=== PATIENT | male | born 1980 | race Caucasian/White ===

== ENCOUNTER 2017-12-07 15:57 | Emergency (ER) | payer OTHER ==
[2017-12-07 16:05] VITALS: TEMP 97.8; BMI 25.8
[2017-12-07] MEDS ORDERED: FOLIC ACID INJECTION - 1 MG, THIAMINE HCL 100 MG, MULTIVIT INJECTION ADULT 10 ML in SOD... IVPB ONE (16:37)
[2017-12-07] MEDS ORDERED: SODIUM CHLORIDE 1,000 ML IV STA (16:37)
--- NOTE | 2017-12-07 17:09 | PDOC ---
History of Present Illness - General Chief Complaint: Alcohol intoxication Stated Complaint: Alcohol intoxication Time Seen by Provider: 12/07/17 16:02 History Source: Patient Exam Limitations: Intoxication (but alert and conversive) - History of Present Illness Initial Comments: 12/07/17 17:04 37-year-old male with history of alcohol abuse presents to the ED for evaluation of etoh intoxication requesting detox. Patient states was at [facility] where he was referred by another patient's family to go to [facility] where he went to today. Pt states when he arrived he was sent here to [facility] secondary to severe intoxication and elevated JUAN DAVID. Patient denies other drug use or medical history. Patient states has been drinking for the past 10 days and not eating days at a time. Patient is requesting rehabilitation secondary to inability to stop drinking on his own and states has a meeting with the [employer] on December 10 and wants to be sober/in control at that time. Pt has no complaints including headache, abdominal pain, chest pain, nausea, fever or chills. Patient also denies head injury. Timing/Duration: unsure Severity: moderate Associated Symptoms: reports: denies symptoms Past History - Travel Traveled outside of the country in the last 30 days: No - Past Medical History Allergies/Adverse Reactions: Allergies Allergy/AdvReac Type Severity Reaction Status Date / Time No Known Allergies Allergy Verified 12/08/17 00:28 Home Medications: Ambulatory Orders Amlodipine Besylate 5 mg PO 12/09/17 COPD: No - Suicide/Smoking/Psychosocial Hx Smoking History: Never smoked Have you smoked in the past 12 months: No Information on smoking cessation initiated: No Hx Alcohol Use: No Drug/Substance Use Hx: No Substance Use Type: Alcohol Patient Lives Alone: Yes Lives with/in: spouse/SO Review of Systems - Review of Systems Able to Perform ROS?: No Constitutional: Yes: Loss of Appetite HEENTM: No: Symptoms Reported Respiratory: No: Symptoms reported Cardiac (ROS): No: Symptoms Reported ABD/GI: Yes: Poor Appetite, Poor Fluid Intake : No: Symptoms Reported Musculoskeletal: No: Symptoms Reported Integumentary: No: Symptoms Reported Neurological: No: Symptoms reported, Headache, Dizziness Psychiatric: Yes: Stressors Endocrine: No: Symptoms Reported Hematologic/Lymphatic: No: Symptoms Reported *Physical Exam - Vital Signs Last Vital Signs Temp Pulse Resp BP Pulse Ox 97.8 F 85 16 138/64 100 12/07/17 16:00 12/07/17 16:00 12/07/17 16:00 12/07/17 16:00 12/07/17 16:00 - Physical Exam General Appearance: Yes: Nourished, Appropriately Dressed, Alcohol on Breath, Intoxicated. No: Apparent Distress HEENT: positive: EOMI, TERRY, TMs Normal, Pharynx Normal (dry). negative: Pale Conjunctivae Neck: positive: Supple Respiratory/Chest: positive: Lungs Clear, Normal Breath Sounds. negative: Respiratory Distress, Accessory Muscle Use Cardiovascular: positive: Regular Rhythm, Regular Rate. negative: Murmur Gastrointestinal/Abdominal: positive: Soft. negative: Tenderness Integumentary: positive: Normal Color, Warm, Moist Neurologic: positive: Motor Strength 5/5 (ambulatory) ED Treatment Course - LABORATORY CBC & Chemistry Diagram: 12/07/17 16:45 12/07/17 16:45 Medical Decision Making - Medical Decision Making 12/07/17 17:11 Patient here for detox from alcohol. Patient sent here from [facility] secondary to the appearance of severe intoxication, inability to stand, and elevated JUAN DAVID. Patient here conversing and alert but appears dry on exam. Pt able to ambulate steady on feet here in the ED. Patient ordered for basic labs including a banana bag and a liter of normal saline. Patient will be sent to [facility] once completed. 12/07/17 18:01 Selected Entries 12/07/17 16:00 Temperature 97.8 F Pulse Rate 85 Respiratory 16 Rate Blood Pressure 138/64 O2 Sat by Pulse 100 Oximetry (%) Laboratory Tests 12/07/17 16:45 WBC 3.9 L Hgb 12.9 Hct 38.3 Plt Count 86 L 12/07/17 18:08 Laboratory Tests 12/07/17 16:45 Sodium 145 Potassium 4.1 Chloride 105 Carbon Dioxide 26 Anion Gap 14 BUN 5 L Creatinine 0.6 L Random Glucose 78 Calcium 8.6 Magnesium 2.4 Total Bilirubin 0.3 AST 133 H ALT 140 H Alkaline Phosphatase 64 Total Protein 7.6 Albumin 4.5 Patient received 2 L of fluid including a banana bag. Patient requesting to go to detox rehabilitation. Patient will be escorted via security. Patient alert and conversive. Patient slept while receiving the IV fluids *DC/Admit/Observation/Transfer Diagnosis at time of Disposition: Alcohol abuse - Discharge Dispostion Disposition: HOME Condition at time of disposition: Improved - Referrals - Patient Instructions Printed Discharge Instructions: DI for Alcohol Abuse Additional Instructions: Please go directly to [facility] as previously planned. Please utilize all resources to abstain from alcohol use. - Post Discharge Activity
[2017-12-07 17:25] LABS: HEMATOCRIT 38.3 % (35.4-49); HEMOGLOBIN 12.9 GM/dL (11.7-16.9); MCH 28.7 pg (25.7-33.7); MCHC 33.8 g/dl (32.0-35.9); MEAN CELL VOLUME 85.1 fl (80-96); MEAN PLT VOLUME 7.7 fl (7.5-11.1); PLATELET COUNT 86 K/MM3 (134-434); RBC 4.49 M/mm3 (4.00-5.60); RDW 15.7 % (11.9-15.9); WHITE BLOOD COUNT 3.9 K/mm3 (4.0-10.0)
[2017-12-07 17:43] LABS: ALBUMIN 4.5 g/dl (3.4-5.0); ANION GAP 14 (8-16); BILIRUBIN,TOTAL 0.3 mg/dL (0.2-1.0); BLOOD UREA NITROGEN 5 mg/dL (7-18); CALCIUM 8.6 mg/dL (8.5-10.1); CHLORIDE 105 mmol/L (98-107); CO2 26 mmol/L (21-32); CREATININE 0.6 mg/dL (0.7-1.3); GLUCOSE,RANDOM 78 mg/dL (74-106); MAGNESIUM 2.4 mg/dL (1.8-2.4); POTASSIUM 4.1 mmol/L (3.5-5.1); SGOT/AST 133 U/L (15-37); SGPT/ALT 140 U/L (12-78); SODIUM 145 mmol/L (136-145); TOT PROT 7.6 g/dl (6.4-8.2)
[2017-12-07 17:44] LABS: ALK PHOS 64 U/L (45-117)
[2017-12-07 18:20] VITALS: BP 128/65; PULSE 70
[2017-12-07 21:50] LABS: PLATELET ESTIMATE DECREASED
== END 2017-12-07 18:18 | disposition home or self-care (01) ==
LOC: JER 15:57
PROC: 3E033GC Introduction of Other Therapeutic Substance into Peripheral Vein, Percutaneous Approach (ICD-10-PCS; principal; 2017-12-07)
PROC: 3E0337Z Introduction of Electrolytic and Water Balance Substance into Peripheral Vein, Percutaneous Approach (ICD-10-PCS; 2017-12-07)
DX: F10.10 Alcohol abuse, uncomplicated (principal)
CPT/HCPCS: 36415; 80053; 83735; 85025; 96361; 96365; 99284-25; J7030

== ENCOUNTER 2017-12-08 00:02 | Inpatient (IN) | payer OTHER ==
--- NOTE | 2017-12-08 00:27 | PDOC ---
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 History provided by EAR[employer] CHILDHO[employer] WORK[employer] at [facility]: The patient was evaluated at [facility] yesterday and sent to [facility] for alcohol detox. Upon arrival, the patients blood alcohol level was determined to be at an acceptable level for detox. The patient subsequently left from the care team for about 1 hour and returned appearing very intoxicated. The patients blood alcohol level was rechecked and found to be much higher than before and at an unacceptable level for detox. This patient is unable to provide history secondary to alcohol intoxication. Allergies: NKA Past surgical history: None reported. Social history: Alcohol abuse. No reported cigarette or drug use. PCP: Not on Staff. <Mane Oliva - Last Filed: 12/08/17 00:36> - General History Source: Patient <Manoj Anne - Last Filed: 12/08/17 19:31> - General Chief Complaint: Alcohol intoxication Stated Complaint: INTOX Time Seen by Provider: 12/08/17 00:19 Past History <Mane Oliva - Last Filed: 12/08/17 00:36> - Past Medical History Anemia: No Asthma: No Cancer: No Cardiac Disorders: No CVA: No COPD: No CHF: No Dementia: No Diabetes: No GI Disorders: Yes (GERD ) Disorders: No HTN: Yes Hypercholesterolemia: No Liver Disease: No Seizures: No Thyroid Disease: No - Surgical History Abdominal Surgery: No Appendectomy: No Cardiac Surgery: No Cholecystectomy: No Lung Surgery: No Neurologic Surgery: No Orthopedic Surgery: Yes (broken hand 2010) - Suicide/Smoking/Psychosocial Hx Smoking History: Never smoked Have you smoked in the past 12 months: No Hx Alcohol Use: Yes Drug/Substance Use Hx: No Substance Use Type: Alcohol Hx Substance Use Treatment: Yes (June [address] [facility] ) <Manoj Anne - Last Filed: 12/08/17 19:31> - Past Medical History Allergies/Adverse Reactions: Allergies Allergy/AdvReac Type Severity Reaction Status Date / Time No Known Allergies Allergy Verified 12/08/17 00:28 Home Medications: Ambulatory Orders Hydrochlorothiazide [Hctz -] 12.5 mg PO DAILY 12/07/17 Losartan Potassium [Losartan Potassium] 50 mg PO DAILY 12/07/17 Review of Systems - Review of Systems Able to Perform ROS?: No (Intoxicated) <Mane Oliva - Last Filed: 12/08/17 00:36> *Physical Exam - Vital Signs Last Vital Signs Temp Pulse Resp BP Pulse Ox 97.7 F 94 H 20 162/82 96 12/08/17 00:21 12/08/17 00:21 12/08/17 00:21 12/08/17 00:21 12/08/17 00:21 - Physical Exam Comments: 12/08/17 00:36 GENERAL: (+) Intoxicated. Well developed, well nourished. Awake and alert. No acute distress. HEENT: Normocephalic, atraumatic. PERRLA, EOMI. No conjunctival pallor. Sclera are non- icteric. Moist mucous membranes. Oropharynx is clear. NECK: Supple. Full ROM. No JVD. Carotid pulses 2+ and symmetric, without bruits. No thyromegaly. No lymphadenopathy. CARDIOVASCULAR: Regular rate and rhythm. No murmurs, rubs, or gallops. Distal pulses are 2+ and symmetric. PULMONARY: No evidence of respiratory distress. Lungs clear to auscultation bilaterally. No wheezing, rales or rhonchi. ABDOMINAL: Soft. Non-tender. Non-distended. No rebound or guarding. No organomegaly. Normoactive bowel sounds. MUSCULOSKELETAL Normal range of motion at all joints. No bony deformities or tenderness. No CVA tenderness. EXTREMITIES: No cyanosis. No clubbing. No edema. No calf tenderness. SKIN: Warm and dry. Normal capillary refill. No rashes. No jaundice. NEUROLOGICAL: (+) Slurred speech. Alert, awake, appropriate. Cranial nerves 2-12 intact. No deficits to light touch and temperature in face, upper extremities and lower extremities. No motor deficits in the in face, upper extremities and lower extremities. Normoreflexic in the upper and lower extremities. Toes are downgoing bilaterally. PSYCHIATRIC: Cooperative. Good eye contact. Appropriate mood and affect. <Mane Oliva - Last Filed: 12/08/17 00:36> ED Treatment Course - LABORATORY CBC & Chemistry Diagram: 12/08/17 04:27 12/08/17 04:27 <Manoj Anne - Last Filed: 12/08/17 19:31> Medical Decision Making - Medical Decision Making 12/08/17 06:37 Dr. Anne: The scribe's documentation has been prepared under my direction and personally reviewed by me in its entirery. I confirm that the note above accurately reflects all work, treatment, procedures, and medical decision making performed by me. Pt alcohol level is still elevated despite having blood drawn several hours after presenting to the ED. Will continue hydrating. Will replace calcium as well. <Manoj Anne - Last Filed: 12/08/17 19:31> *DC/Admit/Observation/Transfer - Attestations Scribe Attestion: 12/08/17 00:37 Documentation prepared by Mane Oliva, acting as medical records clerk for Manoj Anne DO. <Mane Oliva - Last Filed: 12/08/17 00:36> <Manoj Anne - Last Filed: 12/08/17 19:31> Diagnosis at time of Disposition: Alcohol abuse, Alcohol dependence with withdrawal - Discharge Dispostion Condition at time of disposition: Stable
[2017-12-08 05:14] LABS: HEMATOCRIT 33.3 % (35.4-49); HEMOGLOBIN 11.2 GM/dL (11.7-16.9); MCH 28.6 pg (25.7-33.7); MCHC 33.6 g/dl (32.0-35.9); MEAN CELL VOLUME 84.9 fl (80-96); RBC 3.92 M/mm3 (4.00-5.60); RDW 15.4 % (11.9-15.9); WHITE BLOOD COUNT 2.5 K/mm3 (4.0-10.0)
[2017-12-08 05:40] LABS: ALBUMIN 3.7 g/dl (3.4-5.0); ALK PHOS 52 U/L (45-117); ANION GAP 11 (8-16); BILIRUBIN,TOTAL 0.2 mg/dL (0.2-1.0); BLOOD UREA NITROGEN 6 mg/dL (7-18); CALCIUM 7.7 mg/dL (8.5-10.1); CHLORIDE 110 mmol/L (98-107); CO2 27 mmol/L (21-32); CREATININE 0.7 mg/dL (0.7-1.3); GLUCOSE,RANDOM 89 mg/dL (74-106); MAGNESIUM 2.1 mg/dL (1.8-2.4); SGOT/AST 100 U/L (15-37); SGPT/ALT 112 U/L (12-78); SODIUM 148 mmol/L (136-145); TOT PROT 6.5 g/dl (6.4-8.2)
[2017-12-08 06:11] LABS: MEAN PLT VOLUME 7.4 fl (7.5-11.1); PLATELET COUNT 80 K/MM3 (134-434)
[2017-12-08 06:12] LABS: PLATELET ESTIMATE MOD DECREASED
[2017-12-08] MEDS ORDERED: CALCIUM GLUCONATE 10% - 1,000 MG/10 ML VIAL IVPB ONE (06:38)
[2017-12-08] MEDS ORDERED: CALCIUM GLUCONATE 10% - 1,000 MG/10 ML VIAL ONE (07:23)
--- NOTE | 2017-12-08 08:46 | PDOC ---
*Physical Exam - Vital Signs Last Vital Signs Temp Pulse Resp BP Pulse Ox 98.6 F 77 18 114/69 95 12/08/17 08:06 12/08/17 08:06 12/08/17 08:06 12/08/17 08:06 12/08/17 08:06 - Physical Exam Comments: 12/08/17 08:50 Gen: sleeping, easily arousable, smell of etoh on the patients breath heart: +s1s2 tachy lungs: cta b/l abd: soft, mild diffuse ttp ext: no c/c/e, tremors to hands, neuro: no focal deficits, tongue fasciculations skin: no external signs of trauma 12/08/17 08:54 ED Treatment Course - LABORATORY CBC & Chemistry Diagram: 12/08/17 04:27 12/08/17 04:27 - ADDITIONAL ORDERS Additional order review: Laboratory Results 12/08/17 04:27 Sodium 148 H Potassium 4.0 Chloride 110 H Carbon Dioxide 27 Anion Gap 11 BUN 6 L Creatinine 0.7 Creat Clearance w eGFR > 60 Random Glucose 89 Calcium 7.7 L Magnesium 2.1 Total Bilirubin 0.2 D AST 100 H D ALT 112 H Alkaline Phosphatase 52 Total Protein 6.5 Albumin 3.7 12/08/17 04:27 RBC 3.92 L MCV 84.9 MCHC 33.6 RDW 15.4 MPV 7.4 L Neutrophils % No Result Required. Lymphocytes % No Result Required. - Medications Given in the ED: ED Medications Discontinued Medications Generic Name Dose Route Start Last Admin Trade Name Freq PRN Reason Stop Dose Admin Calcium Gluconate 1,000 mg 12/08/17 06:38 12/08/17 06:52 Calcium Gluconate 10% - IVPB 12/08/17 06:39 1,000 mg ONCE ONE Administration Medical Decision Making - Medical Decision Making 12/08/17 08:46 a/p: 37yo male with etoh use - signed out by the prior attending -etoh 315.5 this AM 12/08/17 08:52 pt states he wanted to go to detox yesterday - states there was a 7 hour wait to be seen at detox, states he felt himself going into withdrawal so he left detox and went out and drank pt states he feels shaky now tongue fasciculations, tremors of hands will medicate will admit for etoh intoxication now with withdrawal pt willing to stay for further eval microblog sent to [facility] 12/08/17 09:09 case discussed with IM resident - accepts pt to noncardiac tele under Dr. Davila for alcohol intoxication with withdrawal will place consult to Dr. Pandey *DC/Admit/Observation/Transfer Diagnosis at time of Disposition: Alcohol abuse, Alcohol dependence with withdrawal - Discharge Dispostion Condition at time of disposition: Fair Admit: Yes - Referrals Referrals: ON STAFF,NOT [Primary Care Provider] - - Patient Instructions - Post Discharge Activity - Attestations Physician Attestion: 12/08/17 09:10 I, Dr. Floridalma Weinstein, DO, attest that this document has been prepared under my direction and personally reviewed by me in its entirety. I further attest, that it accurately reflects all work, treatment, procedures and medical decision -making performed by me.
[2017-12-08] MEDS ORDERED: chlordiazePOXIDE HCL 25 MG CAPSULE PO ONE (08:53)
[2017-12-08] MEDS ORDERED: FOLIC ACID INJECTION - 1 MG, THIAMINE HCL 100 MG, MULTIVIT INJECTION ADULT 10 ML in SOD... IVPB ONE (08:53)
[2017-12-08] MEDS ORDERED: chlordiazePOXIDE HCL 25 MG CAPSULE ONE ×3 (09:35→16:33)
--- NOTE | 2017-12-08 10:05 | HP ---
CHIEF COMPLAINT: alcohol withdrawal PCP: none HISTORY OF PRESENT ILLNESS: 37 y/o male with PMH of HTN came in with alcohol intoxication. Patient states that he had a bad break up about 15 days ago and then he started dinking 3 bottles of wine every day. He has many episodes of black out and has vomited many times but no blood in vomit. Patient started seeing shikiness in his hands 2 days ago and yesterday he went to [facility] for detox but over there wait was too long and he started feeling more shakiness so he went out and had alcohol. Today he came in for detox. Last time he was in detox 1 year ago and after that he didn't drink for 3 months and later on started drinking occasional. Started álvaro drinking 15 days ago. Patient also reported nose bleed 2 days ago which stopped itself, also noticed dark color stool from 2 days and bleeding when he brushes his teeth. Denies burning micturation and increase in frequency. Denies headache, neck stiffness, fever, cough, chest pain, sob, numbness or weakness in any part of body. Denies IV drug abuse and blood transfusion, denies yellow discoloration of eyes. Has multiple sexual partner. Denies any discharge from urethra. ER course was notable for: (1)cbc, cmp (2)banana bag (3)librium Recent Travel: [place] PAST MEDICAL HISTORY: HTN, on erital AM ( [facility] telmesartan 40mg + amlodipine 5mg combination) PAST SURGICAL HISTORY: hand surgery Social History: Smoking:no Alcohol:yes Drugs: no multiple sexual partners Family History: Not relevant Allergies No Known Allergies Allergy (Verified 12/08/17 00:28) HOME MEDICATIONS: Home Medications Medication Instructions Recorded Hydrochlorothiazide [Hctz -] 12.5 mg PO DAILY 12/07/17 Losartan Potassium [Losartan 50 mg PO DAILY 12/07/17 Potassium] REVIEW OF SYSTEMS CONSTITUTIONAL: Absent: fever, chills, diaphoresis, generalized weakness, malaise, loss of appetite, weight change HEENT: Absent: rhinorrhea, nasal congestion, throat pain, throat swelling, difficulty swallowing, mouth swelling, ear pain, eye pain, visual changes CARDIOVASCULAR: Absent: chest pain, syncope, palpitations, irregular heart rate, lightheadedness , peripheral edema RESPIRATORY: Absent: cough, shortness of breath, dyspnea with exertion, orthopnea, wheezing, stridor, hemoptysis GASTROINTESTINAL: Absent: abdominal pain, abdominal distension, nausea, vomiting, diarrhea, constipation, melena, hematochezia GENITOURINARY: Absent: dysuria, frequency, urgency, hesitancy, hematuria, flank pain, genital pain MUSCULOSKELETAL: Absent: myalgia, arthralgia, joint swelling, back pain, neck pain SKIN: Absent: rash, itching, pallor HEMATOLOGIC/IMMUNOLOGIC: Absent: easy bleeding, easy bruising, lymphadenopathy, frequent infections ENDOCRINE: Absent: unexplained weight gain, unexplained weight loss, heat intolerance, cold intolerance NEUROLOGIC: Absent: headache, focal weakness or paresthesias, dizziness, unsteady gait, seizure, mental status changes, bladder or bowel incontinence PSYCHIATRIC: Absent: anxiety, depression, PHYSICAL EXAMINATION Vital Signs - 24 hr 12/08/17 12/08/17 12/08/17 00:21 07:05 08:06 Temperature 97.7 F 97.8 F 98.6 F Pulse Rate 94 H Pulse Rate [ 80 77 Right Radial] Respiratory 20 18 18 Rate Blood Pressure 162/82 Blood Pressure 121/80 114/69 [Right Arm] O2 Sat by Pulse 96 96 95 Oximetry (%) GENERAL: Awake, alert, and fully oriented, in no acute distress. breath smells like alcohol, HEAD: Normal with no signs of trauma. EYES: Pupils equal, round and reactive to light, extraocular movements intact, sclera anicteric, conjunctiva clear. No lid lag. No nystagmus EARS, NOSE, THROAT: Ears normal, nares patent, oropharynx clear without exudates. dry mucous membranes. tremors in tongue present. no active bleeding, no gum hypertrophy. NECK: Normal range of motion, supple without lymphadenopathy, JVD, or masses. LUNGS: Breath sounds equal, clear to auscultation bilaterally. No wheezes, and no crackles. No accessory muscle use. HEART: Regular rate and rhythm, normal S1 and S2 ABDOMEN: Soft, nontender, not distended, normoactive bowel sounds, no guarding, no rebound, no masses. MUSCULOSKELETAL: Normal range of motion at all joints. No bony deformities or tenderness. UPPER EXTREMITIES: 2+ pulses, warm, well-perfused. No cyanosis. No clubbing. No peripheral edema. tremors present in b/l hand LOWER EXTREMITIES: warm,No calf tenderness. No peripheral edema. NEUROLOGICAL: Cranial nerves II-XII intact. Normal speech. Normal gait., finger nose test normal, no ataxia, PSYCHIATRIC: Cooperative. Good eye contact. Appropriate mood and affect. SKIN: Warm, dry, Laboratory Results - last 24 hr 12/08/17 12/08/17 04:27 04:27 WBC 2.5 L D RBC 3.92 L Hgb 11.2 L D Hct 33.3 L MCV 84.9 MCH 28.6 MCHC 33.6 RDW 15.4 Plt Count 80 L MPV 7.4 L Total Counted 100 Neutrophils % No Result Required. Neutrophils % (Manual) 41.0 L D Lymphocytes % No Result Required. Lymphocytes % (Manual) 47.0 H D Monocytes % (Manual) 8 Eosinophils % (Manual) 4.0 Platelet Estimate Mod decreased Platelet Comment No clumping noted Sodium 148 H Potassium 4.0 Chloride 110 H Carbon Dioxide 27 Anion Gap 11 BUN 6 L Creatinine 0.7 Creat Clearance w eGFR > 60 Random Glucose 89 Calcium 7.7 L Magnesium 2.1 Total Bilirubin 0.2 D AST 100 H D ALT 112 H Alkaline Phosphatase 52 Total Protein 6.5 Albumin 3.7 Alcohol, Quantitative 315.52 H* ASSESSMENT/PLAN: 37 y/o male with PMH of HTN came in with alcohol intoxication Alcohol intoxication with withdrawal. start librium protocol. Banan bag. thiamine. neuro exam q2h. Dr avalos consult. Fall risk precautions. monitor vitals. Acute Pancytopenia PLT 80, wbc 2.5, absolute neutrophil 1045, rbc 3.9. Band cells 0 Labs frm 09/10/17 wbc 4.7, hb 11.9, mcv 87, rbc 4.22, plt 293, neutrophol 78 could be due to alcohol intoxication. Not on medication which can cause pancytopenia. No source of infection. Monitor isolation precaution. patient is afebrile. If develops fever send cultures. avoid anticogulent use soft brush or finger to brush teeth( h/o bleeding from gums likely from thrombocytopenia) get INR get sr b12 and folic acid level. Anemia ( normocytic) hb stable since last labs in 09/10/17 get stool occult for h/o dark stool from 3 days. ( patient refused for rectal exam. He will let nurse know if he sees dark stool again) started on Vitamin b12 and folic acid. anemia workup can be done outpatient. HTN monitor If BP is elevated start him on telmesartan 40 and amlodipine 5mg. Hypernatremia free water deficit 0.8 L started on d51/2 NS after bananbag. monitor encourage oral water intake. Hypocalcemia. likely from alcohol. check magnesium level Monitor for tetany got calcium gluconate in ED i repeat ca in evening. chvostek sign negative, trousseau sign negative. can get Vitamin D level check as an outpatient. Transamenitis: likely from alcohol intake but patient has h/o multiple sexual partner Get hepatic panel. Monitor. liver ultrasound: fatty liver. avoid hepatotoxic drugs. get pt/inr fluid: d5 1/2 ns 125 ml/hr electrolyte: hypoca;lcemia, hypernatremia nutrition: start soft diet. 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 dispo: med surg Visit type - Emergency Visit Emergency Visit: Yes ED Registration Date: 12/08/17 Care time: The patient presented to the Emergency Department on the above date and was hospitalized for further evaluation of their emergent condition. - New Patient This patient is new to me today: Yes Date on this admission: 12/08/17 - Critical Care Critical Care patient: No
--- NOTE | 2017-12-08 10:57 | CONSULT ---
Consult Detox [facility] Reason for Current Admission/Consult: substance use Referred by:: laverne xie - Alcohol/Substance Use Hx Alcohol Use: Yes Assessment Plan - Diagnosis (1) Alcohol dependence with withdrawal Status: Acute Qualifiers: (2) GERD (gastroesophageal reflux disease) Status: Chronic Qualifiers: Esophagitis presence: without esophagitis Qualified Code(s): K21.9 - Gastro -esophageal reflux disease without esophagitis (3) Hypertension Status: Chronic Qualifiers: Hypertension type: essential hypertension Qualified Code(s): I10 - Essential (primary) hypertension - Plan Plan: 37 y/o m sent from [facility] after admission for alcohol detoxification because of alcohol intoxication prior to reaching floor. Libirum detox started at [facility] which he appers to be tolerating well. PMH HTN, GERD. chart, imagina, labs reviewed: 1. fliuids, vitamins, libirum detox as ordered. 2. can return to [facility] when medically stable to comoplete detox or enter rehab. 3. restart antihypertensive medications to control sil< low sodium diet. Hany Pandey MD [phone] - Medication Detox Regimen/Protocol: Librium
[2017-12-08 11:47] VITALS: BMI 22.3
[2017-12-08] MEDS ORDERED: PANTOPRAZOLE 40 MG TABLET (FP) ONE (12:12)
[2017-12-08] MEDS: chlordiazePOXIDE HCL 25 MG CAPSULE PO SCH ×3 (12:13→22:16)
[2017-12-08] MEDS: PANTOPRAZOLE 40 MG TABLET (FP) PO SCH ×2 (12:13→22:16)
--- NOTE | 2017-12-08 12:21 | PN ---
Teaching Attending Note Name of Resident: Justin Green ATTENDING PHYSICIAN STATEMENT I saw and evaluated the patient. I reviewed the resident's note and discussed the case with the resident. I agree with the resident's findings and plan as documented. SUBJECTIVE: This is a 37 year old man with a history of alcohol abuse, HTN who comes to the ED with alcohol intoxication requesting detox. He states that he has been drinking 3 bottles of wine every day for about 2 weeks. Two days ago he became shaky. Records show that yesterday he went to [facility] but was not admitted because his alcohol level was too high. He was sent to the ED where he was treated and sent to [facility]. He left during the admission process and returned intoxicated, and so he was sent again to the ED. OBJECTIVE: Vital Signs Period Temp Pulse Resp BP Sys/Mills Pulse Ox Last 24 Hr 97.7 F-98.6 F 77-94 18-20 114-162/69-91 95-97 GENERAL: Alert, oriented, tremulous HEART: S1S2, RRR LUNGS: Clear ABDOMEN: Soft, non-tender, non-distended, normal BS EXTREMITIES: No edema Laboratory Tests 12/08/17 12/08/17 12/08/17 04:27 04:27 05:00 WBC 2.5 L D RBC 3.92 L Hgb 11.2 L D Hct 33.3 L MCV 84.9 MCH 28.6 MCHC 33.6 RDW 15.4 Plt Count 80 L MPV 7.4 L Total Counted 100 Neutrophils % No Result Required. Neutrophils % (Manual) 41.0 L D Lymphocytes % No Result Required. Lymphocytes % (Manual) 47.0 H D Monocytes % (Manual) 8 Eosinophils % (Manual) 4.0 Platelet Estimate Mod decreased Platelet Comment No clumping noted Sodium 148 H Potassium 4.0 Chloride 110 H Carbon Dioxide 27 Anion Gap 11 BUN 6 L Creatinine 0.7 Creat Clearance w eGFR > 60 Random Glucose 89 Calcium 7.7 L Phosphorus 5.0 H Cancelled Magnesium 2.1 Cancelled Total Bilirubin 0.2 D AST 100 H D ALT 112 H Alkaline Phosphatase 52 Total Protein 6.5 Albumin 3.7 Alcohol, Quantitative 315.52 H* Home Medications Medication Instructions Recorded Hydrochlorothiazide [Hctz -] 12.5 mg PO DAILY 12/07/17 Losartan Potassium [Losartan 50 mg PO DAILY 12/07/17 Potassium] ASSESSMENT AND PLAN: This is a 37 year old man with a history of alcohol abuse, HTN who presented to the ED from [facility] with alcohol intoxication requesting detox. 1. Alcohol withdrawal, uncomplicated - Start Librium detox - Detox consult 2. Alcohol dependence - Multivitamin, thiamine, folic acid 3. Pancytopenia - ANC 1025 - Likely alcohol induced - Monitor CBC 4. Hepatic transaminitis - Likely secondary to alcohol - Monitor LFTs 5. Hypernatremia - IV D5 1/2 NS - Monitor electrolytes 6. Hypocalcemia - Given calcium gluconate 1 g IV in ED - Monitor calcium level and supplement as needed 7. HTN - Continue Micardis, Norvasc
[2017-12-08] MEDS: THIAMINE HCL 100 MG TABLET (FP) PO SCH ×2 (12:38→22:16)
[2017-12-08] MEDS ORDERED: LORazepam 1 MG TABLET PO ONE (16:15)
[2017-12-08] MEDS ORDERED: LORazepam 0.5 MG TABLET ONE (16:33)
[2017-12-08] MEDS ORDERED: DEXTROSE 5%-0.45% SALINE 1,000 ML IV SCH (17:30)
[2017-12-08] MEDS: DEXTROSE 5%-0.45% SALINE 1,000 ML IV SCH (18:23)
--- NOTE | 2017-12-08 19:49 | EKG ---
Test Reason : Blood Pressure : / mmHG Vent. Rate : 069 BPM Atrial Rate : 069 BPM P-R Int : 150 ms QRS Dur : 086 ms QT Int : 366 ms P-R-T Axes : 054 059 054 degrees QTc Int : 392 ms NORMAL SINUS RHYTHM NORMAL ECG NO PREVIOUS ECGS AVAILABLE Confirmed by BRODY KIM, REGGIE ([id number]) on 12/08/2017 7:49:02 PM Referred By: Confirmed By:REGGIE SKINNER MD
[2017-12-08 20:20] LABS: URINE APPEARANCE CLEAR; URINE BILIRUBIN NEGATIVE (<2.0 mg/dL); URINE COLOR LTYELLOW; URINE GLUCOSE (UA) NEGATIVE (NEGATIVE); URINE KETONE NEGATIVE (NEGATIVE); URINE LEUK ESTERASE NEGATIVE (NEGATIVE); URINE NITRITE NEGATIVE (NEGATIVE); URINE PROTEIN NEGATIVE (NEGATIVE); URINE UROBILINOGEN NEGATIVE mg/dL (0.2-1.0)
[2017-12-08 20:35] LABS: COCAINE, UR NEGATIVE ng/ml (CUTOFF=300); METHADONE, UR NEGATIVE ng/ml (CUTOFF=300); OPIATES, URI NEGATIVE ng/ml (CUTOFF=300); PHENCYCLIDINE,URINE NEGATIVE ng/ml (CUTOFF=25); URINE AMPHETAMINES NEGATIVE ng/ml (CUTOFF=500); URINE BARBITURATES NEGATIVE ng/ml (CUTOFF=200)
[2017-12-08 20:37] LABS: URINE BENZODIAZEPINES POSITIVE ng/ml (CUTOFF=200)
[2017-12-08 21:33] LABS: INR 1.12 (0.82-1.09); PROTHROMBIN TIME (PATIENT) 12.7 SEC (9.7-13.0)
[2017-12-08] MEDS ORDERED: PT OWN MED DRAWER 7, Y5N ONE (22:22)
[2017-12-09] MEDS: DEXTROSE 5%-0.45% SALINE 1,000 ML IV SCH (02:25)
[2017-12-09] MEDS: chlordiazePOXIDE HCL 25 MG CAPSULE PO SCH ×4 (05:56→22:14)
[2017-12-09 07:47] LABS: BASO % 0.4 % (0-2.0); EOS % 3.9 % (0-4.5); HEMATOCRIT 34.1 % (35.4-49); HEMOGLOBIN 11.3 GM/dL (11.7-16.9); MCH 28.6 pg (25.7-33.7); MCHC 33.2 g/dl (32.0-35.9); MEAN CELL VOLUME 85.9 fl (80-96); MEAN PLT VOLUME 7.2 fl (7.5-11.1); MONO % 10.6 % (3.8-10.2); NEUT % 46.1 % (42.8-82.8); PLATELET COUNT 67 K/MM3 (134-434); RBC 3.97 M/mm3 (4.00-5.60); RDW 15.4 % (11.9-15.9); WHITE BLOOD COUNT 2.5 K/mm3 (4.0-10.0)
[2017-12-09 08:04] LABS: ALBUMIN 3.6 g/dl (3.4-5.0); ANION GAP 11 (8-16); BLOOD UREA NITROGEN 6 mg/dL (7-18); CALCIUM 8.6 mg/dL (8.5-10.1); CHLORIDE 104 mmol/L (98-107); CO2 26 mmol/L (21-32); CREATININE 0.5 mg/dL (0.7-1.3); GLUCOSE,RANDOM 107 mg/dL (74-106); POTASSIUM 3.2 mmol/L (3.5-5.1); SGOT/AST 75 U/L (15-37); SGPT/ALT 99 U/L (12-78); SODIUM 141 mmol/L (136-145)
[2017-12-09 08:07] LABS: ALK PHOS 55 U/L (45-117); BILIRUBIN,TOTAL 0.7 mg/dL (0.2-1.0); TOT PROT 6.4 g/dl (6.4-8.2)
[2017-12-09] MEDS ORDERED: DEXTROSE 5%-0.45% SALINE 1,000 ML IV SCH (08:13)
[2017-12-09] MEDS: VALSARTAN 160 MG TABLET (UD) PO SCH ×2 (08:35→10:33)
[2017-12-09] MEDS: amLODIPine BESYLATE 5 MG TABLET (FP) PO SCH ×2 (08:36→10:33)
--- NOTE | 2017-12-09 09:26 | PN ---
Physical Exam: SUBJECTIVE: Patient seen and examined. OBJECTIVE: Vital Signs Period Temp Pulse Resp BP Sys/Mills Pulse Ox Last 24 Hr 98.1 F-99.8 F 69-86 18-20 136-154/89-101 97 General: lying in bed, nad HEENT: sclera anicteric, conjunctiva clear, no tongue fasiculations Heart: RRR, normal s1/s2, no m/r/g Lungs: CTAB Abd: soft, ntnd Ext: no hand tremors, no LE edema CBC, BMP 12/09/17 06:30 12/09/17 06:30 Hepatic Panel Total Bilirubin 0.7 mg/dL (0.2-1.0) D 12/09/17 06:30 AST 75 U/L (15-37) H D 12/09/17 06:30 ALT 99 U/L (12-78) H 12/09/17 06:30 Alkaline Phosphatase 55 U/L (45-117) 12/09/17 06:30 Albumin 3.6 g/dl (3.4-5.0) 12/09/17 06:30 Urine Test Results Urine Color Ltyellow 12/08/17 20:00 Urine Appearance Clear 12/08/17 20:00 Urine pH 8.0 (5.0-8.0) 12/08/17 20:00 Ur Specific [place] 1.013 (1.001-1.035) 12/08/17 20:00 Urine Protein Negative (NEGATIVE) 12/08/17 20:00 Urine Glucose (UA) Negative (NEGATIVE) 12/08/17 20:00 Urine Ketones Negative (NEGATIVE) 12/08/17 20:00 Urine Blood Negative (NEGATIVE) 12/08/17 20:00 Urine Nitrite Negative (NEGATIVE) 12/08/17 20:00 Urine Bilirubin Negative (<2.0 mg/dL) 12/08/17 20:00 Ur Leukocyte Esterase Negative (NEGATIVE) 12/08/17 20:00 IMAGING: RUQ sono: mild fatty infiltration of liver; no gallstones Active Medications Amlodipine Besylate (Norvasc -) 10 mg PO DAILY [facility] Ascorbic Acid (Vitamin C -) 500 mg PO DAILY [facility] Last Admin: 12/09/17 11:57 Dose: 500 mg Chlordiazepoxide HCl (Librium -) 25 mg PO [id number] [facility] Stop: 12/10/17 05:01 Last Admin: 12/09/17 14:14 Dose: Not Given Chlordiazepoxide HCl (Librium -) 15 mg PO [id number] [facility] Stop: 12/11/17 05:01 Chlordiazepoxide HCl (Librium -) 25 mg PO Q4H PRN PRN Reason: WITHDRAWAL(CONT SUBST) Stop: 12/11/17 09:36 Last Admin: 12/09/17 14:14 Dose: 25 mg Cyanocobalamin (Vitamin B12 -) 1,000 mcg PO DAILY [facility] Last Admin: 12/09/17 11:57 Dose: 1,000 mcg Folic Acid (Folic Acid -) 1 mg PO DAILY [facility] Last Admin: 12/09/17 11:57 Dose: 1 mg Pantoprazole Sodium (Protonix -) 40 mg PO BID [facility] Last Admin: 12/09/17 11:57 Dose: 40 mg Potassium Chloride (Potassium Chloride Oral Liquid) 40 meq PO BID [facility] Last Admin: 12/09/17 14:14 Dose: 40 meq Multivit/Folic Acid/Iron ( Vitamins (Sjr) -) 1 tab PO DAILY [facility] Thiamine HCl (Vitamin B1 -) 100 mg PO BID [facility] Last Admin: 12/09/17 11:57 Dose: 100 mg Valsartan (Diovan -) 160 mg PO DAILY [facility] Last Admin: 12/09/17 10:33 Dose: Not Given ASSESSMENT/PLAN: 37yo man with PMH of HTN and EtOH abuse who presented from [facility] with EtOH intoxication and admitted for detox. #EtOH withdrawal -C/w Librium protocol -Dr. Pandey consulted - vitamin PO daily and thiamine 100mg PO BID #pancytopenia, ANC 1153, likely 2/2 EtOH abuse #transaminitis, downtrending, likely 2/2 to EtOH abuse -RUQ sono - mild fatty liver disease -Trend LFTs #HTN - Norvasc 10mg daily and Valsartan 160mg daily #FEN d/c IVFs hypoK repleted Regular diet #PPX - SCDs/Protonix 40mg daily d/w Dr. Giovanni Santiago MD PGY1 - Internal Medicine Visit type - Emergency Visit Emergency Visit: No - New Patient This patient is new to me today: Yes Date on this admission: 12/09/17 - Critical Care Critical Care patient: No
[2017-12-09] MEDS ORDERED: FOLIC ACID 1 MG TABLET (FP) PO SCH (10:00)
[2017-12-09] MEDS ORDERED: ASCORBIC ACID 500 MG TABLET (FP) PO SCH (10:00)
[2017-12-09] MEDS ORDERED: amLODIPine BESYLATE 5 MG TABLET (FP) PO ONE (10:30)
[2017-12-09] MEDS: CYANOCOBALAMIN 1,000 MCG TABLET (FP) PO SCH (11:57)
[2017-12-09] MEDS: THIAMINE HCL 100 MG TABLET (FP) PO SCH ×2 (11:57→22:14)
[2017-12-09] MEDS: PANTOPRAZOLE 40 MG TABLET (FP) PO SCH ×2 (11:57→22:13)
[2017-12-09] MEDS: chlordiazePOXIDE HCL 25 MG CAPSULE PO PRN (14:14)
[2017-12-09] MEDS: POTASSIUM CHLORIDE ORAL LIQUID 20 MEQ/15 ML PO SCH ×2 (14:14→22:15)
--- NOTE | 2017-12-09 18:59 | PN ---
Teaching Attending Note Name of Resident: Tracey Santiago ATTENDING PHYSICIAN STATEMENT I saw and evaluated the patient. I reviewed the resident's note and discussed the case with the resident. I agree with the resident's findings and plan as documented. SUBJECTIVE: Patient feels better today. OBJECTIVE: Vital Signs Period Temp Pulse Resp BP Sys/Mills Pulse Ox Last 24 Hr 98.1 F-99.8 F 60-86 18-20 135-154/84-101 GENERAL: Appears anxious, less tremulous HEART: S1S2, RRR LUNGS: Clear ABDOMEN: Soft, non-tender, non-distended, normal BS EXTREMITIES: No edema Laboratory Results - last 24 hr 12/08/17 12/08/17 12/08/17 20:00 20:00 20:20 WBC RBC Hgb Hct MCV MCH MCHC RDW Plt Count MPV Neutrophils % Lymphocytes % Monocytes % Eosinophils % Basophils % PT with INR 12.70 INR 1.12 Sodium Potassium Chloride Carbon Dioxide Anion Gap BUN Creatinine Creat Clearance w eGFR Random Glucose Calcium Total Bilirubin AST ALT Alkaline Phosphatase Total Protein Albumin Urine Color Ltyellow Urine Appearance Clear Urine pH 8.0 Ur Specific [place] 1.013 Urine Protein Negative Urine Glucose (UA) Negative Urine Ketones Negative Urine Blood Negative Urine Nitrite Negative Urine Bilirubin Negative Urine Urobilinogen Negative Ur Leukocyte Esterase Negative Opiates Screen Negative Methadone Screen Negative Barbiturate Screen Negative Phencyclidine Screen Negative Ur Amphetamines Screen Negative MDMA (Ecstasy) Screen Negative Benzodiazepines Screen Positive Cocaine Screen Negative U Marijuana (THC) Screen Negative 12/08/17 12/09/17 12/09/17 20:20 06:30 06:30 WBC 2.5 L RBC 3.97 L Hgb 11.3 L Hct 34.1 L MCV 85.9 MCH 28.6 MCHC 33.2 RDW 15.4 Plt Count 67 L MPV 7.2 L Neutrophils % 46.1 Lymphocytes % 39.0 Monocytes % 10.6 H Eosinophils % 3.9 Basophils % 0.4 PT with INR INR Sodium 141 Potassium 3.2 L Chloride 104 Carbon Dioxide 26 Anion Gap 11 BUN 6 L Creatinine 0.5 L D Creat Clearance w eGFR > 60 Random Glucose 107 H D Calcium 8.5 8.6 Total Bilirubin 0.7 D AST 75 H D ALT 99 H Alkaline Phosphatase 55 Total Protein 6.4 Albumin 3.6 Urine Color Urine Appearance Urine pH Ur Specific [place] Urine Protein Urine Glucose (UA) Urine Ketones Urine Blood Urine Nitrite Urine Bilirubin Urine Urobilinogen Ur Leukocyte Esterase Opiates Screen Methadone Screen Barbiturate Screen Phencyclidine Screen Ur Amphetamines Screen MDMA (Ecstasy) Screen Benzodiazepines Screen Cocaine Screen U Marijuana (THC) Screen Current Medications Generic Name Dose Route Start Last Admin Trade Name Freq PRN Reason Stop Dose Admin Amlodipine Besylate 10 mg 12/10/17 10:00 Norvasc - PO DAILY [facility] Chlordiazepoxide HCl 25 mg 12/09/17 11:00 12/09/17 18:36 Librium - PO 12/10/17 05:01 Not Given [id number] [facility] Chlordiazepoxide HCl 15 mg 12/10/17 11:00 Librium - PO 12/11/17 05:01 [id number] [facility] Chlordiazepoxide HCl 25 mg 12/08/17 09:37 12/09/17 14:14 Librium - PO 12/11/17 09:36 25 mg Q4H PRN Administration WITHDRAWAL(CONT SUBST) Cyanocobalamin 1,000 mcg 12/09/17 10:00 12/09/17 11:57 Vitamin B12 - PO 1,000 mcg DAILY [facility] Administration Pantoprazole Sodium 40 mg 12/08/17 10:00 12/09/17 11:57 Protonix - PO 40 mg BID [facility] Administration Potassium Chloride 40 meq 12/09/17 13:30 12/09/17 14:14 Potassium Chloride Oral Liquid PO 40 meq BID [facility] Administration Multivit/Folic Acid/Iron 1 tab 12/10/17 10:00 Vitamins (Sjr) - PO DAILY [facility] Thiamine HCl 100 mg 12/08/17 10:00 12/09/17 11:57 Vitamin B1 - PO 100 mg BID [facility] Administration Valsartan 160 mg 12/09/17 10:00 12/09/17 10:33 Diovan - PO Not Given DAILY [facility] ASSESSMENT AND PLAN: This is a 37 year old man with a history of alcohol abuse, HTN who presented to the ED from [facility] with alcohol intoxication requesting detox. 1. Alcohol withdrawal, uncomplicated - Continue Librium detox - Detox consult appreciated 2. Alcohol dependence - Continue multivitamin, thiamine, folic acid 3. Pancytopenia - Likely secondary to alcohol - WBC, Hgb stable - Platelets lower today - Continue to monitor 4. Hepatic transaminitis - Likely secondary to alcohol - LFTS improving - RUQ US shows mild fatty infiltration of the liver 5. Hypernatremia - Improved 6. Hypocalcemia - Improved - Given calcium gluconate 1 g IV in ED 7. Hypokalemia - Replete potassium 8. HTN - Continue Gregg Arizmendi
[2017-12-10] MEDS: chlordiazePOXIDE HCL 25 MG CAPSULE PO PRN (02:12)
[2017-12-10] MEDS: chlordiazePOXIDE HCL 25 MG CAPSULE PO SCH (06:13)
[2017-12-10 07:22] LABS: BASO % 0.3 % (0-2.0); EOS % 4.7 % (0-4.5); HEMATOCRIT 34.9 % (35.4-49); HEMOGLOBIN 11.6 GM/dL (11.7-16.9); LYMPH % 28.2 % (8-40); MCH 28.7 pg (25.7-33.7); MCHC 33.4 g/dl (32.0-35.9); MEAN CELL VOLUME 85.8 fl (80-96); MEAN PLT VOLUME 8.2 fl (7.5-11.1); MONO % 10.8 % (3.8-10.2); PLATELET COUNT 84 K/MM3 (134-434); RBC 4.06 M/mm3 (4.00-5.60); RDW 15.3 % (11.9-15.9); WHITE BLOOD COUNT 3.1 K/mm3 (4.0-10.0)
[2017-12-10 07:33] VITALS: BP 142/93; PULSE 71; TEMP 98.2
[2017-12-10 07:36] LABS: ALBUMIN 3.7 g/dl (3.4-5.0); ANION GAP 5 (8-16); BLOOD UREA NITROGEN 7 mg/dL (7-18); CALCIUM 8.8 mg/dL (8.5-10.1); CHLORIDE 105 mmol/L (98-107); CO2 28 mmol/L (21-32); GLUCOSE,RANDOM 91 mg/dL (74-106); MAGNESIUM 2.1 mg/dL (1.8-2.4); POTASSIUM 3.7 mmol/L (3.5-5.1); SODIUM 138 mmol/L (136-145)
[2017-12-10 07:39] LABS: ALK PHOS 61 U/L (45-117); BILIRUBIN,TOTAL 0.5 mg/dL (0.2-1.0); CREATININE 0.5 mg/dL (0.7-1.3); SGOT/AST 60 U/L (15-37); SGPT/ALT 92 U/L (12-78); TOT PROT 6.5 g/dl (6.4-8.2)
[2017-12-10] MEDS: CYANOCOBALAMIN 1,000 MCG TABLET (FP) PO SCH (07:47)
[2017-12-10] MEDS: PANTOPRAZOLE 40 MG TABLET (FP) PO SCH (07:47)
[2017-12-10] MEDS: VALSARTAN 160 MG TABLET (UD) PO SCH (07:47)
[2017-12-10] MEDS: THIAMINE HCL 100 MG TABLET (FP) PO SCH (07:48)
[2017-12-10] MEDS: POTASSIUM CHLORIDE ORAL LIQUID 20 MEQ/15 ML PO SCH (07:55)
[2017-12-10] MEDS ORDERED: amLODIPine BESYLATE 10 MG TABLET (FP) PO SCH (10:00)
[2017-12-10] MEDS ORDERED: PRENATAL VITAMINS W/ FOLIC ACID TABLET (FP) PO SCH (10:00)
[2017-12-10] MEDS ORDERED: chlordiazePOXIDE 5 MG CAPSULE PO SCH (11:00)
[2017-12-10 14:14] LABS: HEP.C VIRUS AB <0.1 s/co ratio (0.0-0.9)
--- NOTE | 2017-12-10 15:21 | PN ---
Teaching Attending Note Name of Resident: Tracey Santiago ATTENDING PHYSICIAN STATEMENT I saw and evaluated the patient. I reviewed the resident's note and discussed the case with the resident. I agree with the resident's findings and plan as documented. SUBJECTIVE: Patient signed against medical advice. Patient was explained the risk. OBJECTIVE: Vital Signs Temperature 98.2 F 12/10/17 07:00 Pulse Rate 71 12/10/17 07:00 Respiratory Rate 18 12/10/17 07:00 Blood Pressure 142/93 12/10/17 07:00 O2 Sat by Pulse Oximetry (%) 97 12/08/17 11:00 CBCD WBC 3.1 K/mm3 (4.0-10.0) L 12/10/17 05:35 RBC 4.06 M/mm3 (4.00-5.60) 12/10/17 05:35 Hgb 11.6 GM/dL (11.7-16.9) L 12/10/17 05:35 Hct 34.9 % (35.4-49) L 12/10/17 05:35 MCV 85.8 fl (80-96) 12/10/17 05:35 MCHC 33.4 g/dl (32.0-35.9) 12/10/17 05:35 RDW 15.3 % (11.9-15.9) 12/10/17 05:35 Plt Count 84 K/MM3 (134-434) L D 12/10/17 05:35 MPV 8.2 fl (7.5-11.1) D 12/10/17 05:35 CMP Sodium 138 mmol/L (136-145) 12/10/17 05:35 Potassium 3.7 mmol/L (3.5-5.1) 12/10/17 05:35 Chloride 105 mmol/L (98-107) 12/10/17 05:35 Carbon Dioxide 28 mmol/L (21-32) 12/10/17 05:35 Anion Gap 5 (8-16) L 12/10/17 05:35 BUN 7 mg/dL (7-18) 12/10/17 05:35 Creatinine 0.5 mg/dL (0.7-1.3) L 12/10/17 05:35 Creat Clearance w eGFR > 60 (>60) 12/10/17 05:35 Random Glucose 91 mg/dL (74-106) 12/10/17 05:35 Calcium 8.8 mg/dL (8.5-10.1) 12/10/17 05:35 Total Bilirubin 0.5 mg/dL (0.2-1.0) D 12/10/17 05:35 AST 60 U/L (15-37) H 12/10/17 05:35 ALT 92 U/L (12-78) H 12/10/17 05:35 Alkaline Phosphatase 61 U/L (45-117) 12/10/17 05:35 Total Protein 6.5 g/dl (6.4-8.2) 12/10/17 05:35 Albumin 3.7 g/dl (3.4-5.0) 12/10/17 05:35 Home Medications Medication Instructions Recorded Amlodipine Besylate 5 mg PO 12/09/17 Telmisartan 40 mg PO 12/09/17 Amlodipine Besylate 10 mg PO DAILY #30 tablet 12/10/17 Valsartan [Diovan] 160 mg PO DAILY #30 tablet 12/10/17
--- NOTE | 2017-12-11 14:18 | DS ---
Physical Exam: SUBJECTIVE: Patient seen and examined. Wants to leave AMA. Risks explained to him, which he verbalized understanding. OBJECTIVE: Vital Signs Temperature 98.2 F 12/10/17 07:00 Pulse Rate 71 12/10/17 07:00 Respiratory Rate 18 12/10/17 07:00 Blood Pressure 142/93 12/10/17 07:00 O2 Sat by Pulse Oximetry (%) 97 12/08/17 11:00 General: lying in bed, nad HEENT: sclera anicteric, conjunctiva clear, no tongue fasiculations Heart: RRR, normal s1/s2, no m/r/g Lungs: CTAB Abd: soft, ntnd Ext: no hand tremors, no LE edema LABS CBC, BMP 12/10/17 05:35 12/10/17 05:35 Hepatic Panel Total Bilirubin 0.5 mg/dL (0.2-1.0) D 12/10/17 05:35 AST 60 U/L (15-37) H 12/10/17 05:35 ALT 92 U/L (12-78) H 12/10/17 05:35 Alkaline Phosphatase 61 U/L (45-117) 12/10/17 05:35 Albumin 3.7 g/dl (3.4-5.0) 12/10/17 05:35 HOSPITAL COURSE: Date of Admission:12/08/17 Date of Discharge: 12/11/17 Pre-Hospital Admission Course: 37yo man with PMH of HTN who presents to the ED with alcohol intoxication requesting detox. He reports drinking 3 bottles of wine every day for about 2 weeks. 2 days ago he noted that his hands became shaky. He went to [facility] yesterday (12/07), but was not admitted because his alcohol level was too high. He was then sent to the [facility] ED where he was treated and sent back to [facility]. However, he left during the [facility] admission process. He returned next day (12/08) intoxicated and so again he was sent [facility] ED. Patient reports history of blackouts, last episode 12/06. Longest period of sobriety 2 months. Reports [facility]. Subsequent Hospital Course: Patient was admitted for EtOH withdrawal. Dr. Pandey was consulted. He was started on a Librium protocol and was give 1x Banana bag, thiamine daily, and folate daily. His labs were notable for pancytopenia with mild neutropenia (ANC ~1000), which is likely due to his EtOH abuse. He was placed on neutropenic precautions. He was also noted to have elevated AST and ALT, likely 2/2 EtOH abuse. Hepatitis panel was sent. RUQ ultrasound revealed mild fatty infiltrate. Patient's hypertension was controlled with Norvasc 10mg daily and Valsartan 160mg daily. Patient did not complete Librium detox and left against medical advice. I explained to patient that leaving against medical advice is dangerous and can lead to worsening of condition, permanent disability, and even . I used lay terminology. I answered all questions. It is clear to me that the Mr. Mccray understands the risks and benefits of continuous hospital stay and leaving against medical advice. He has the capacity to make his own decisions. He agrees to follow-up with [facility] for EtOH detoxification and to return to the Emergency Department if symptoms worsen. Consults: Detox - Dr. Pandey IMAGING: EXAM#: TYPE/EXAM: RESULT: [id number] US/ABDOMEN US -LIMITED Right upper quadrant pain. Rule out alcohol use Right upper abdomen ultrasound. The liver is within normal limits in size measuring 17.3 cm in sagittal length with a slightly coarse echotexture. Gallbladder is adequately distended without intraluminal stones or thickening of its wall. No intra or extrahepatic bile duct dilatation is seen. The right kidney measures 11.11, 0.9 cm sagittal length and appears unremarkable. Limited visualization of the pancreas. Visualized portion of the pancreatic head and body appear unremarkable. Visualized portion of the proximal abdominal aorta and inferior vena cava appear unremarkable. Normal flow in the main portal vein. IMPRESSION: Mild fatty infiltration of the liver versus these. Please correlate with liver enzymes. No gallstones are identified. Minutes to complete discharge: 40 Discharge Summary Reason For Visit: ALCOHOL DEPENDENCE WITH WITHDRAWAL Condition: Stable - Instructions Diet, Activity, Other Instructions: You were admitted to the hospital for alcohol withdrawal and detoxed on a Librium taper. You did not complete the taper. You are signing out against medical advice. This can lead to worsening of your condition, permanent disability, and even . -Hepatitis viral serology studies are still pending. We will call you if they are positive. Please make sure we have an current phone number to reach you. You can also call the hospital to get the results. -You can return directly to [facility] on [address] [place] [address] in [place], [place] to complete your detoxification. You can also go to the nearest Emergency Room if you develop withdrawal symptoms (tremors, blackouts, seizures, etc). -You can resume your regular diet except you should avoid foods with salt for your high blood pressure. -Prescriptions for your high blood pressure medications were sent to your pharmacy. Take Valsartan 160mg daily and Amlodipine 10mg daily. -If you do not have primary care doctor, you can make an appointment to see Dr. Jefferson/ Dr. Green at the [facility]. Please return to the Emergency Room if you have any worsening, new or concerning symptoms. Referrals: Frederick Jefferson MD [Staff Physician] - Justin Green RES [Resident] - ON STAFF,NOT [Primary Care Provider] - John Pandey MD [Staff Physician] - Disposition: AGAINST MEDICAL ADVICE - Home Medications Comprehensive Discharge Medication List: Ambulatory Orders Amlodipine Besylate 5 mg PO 12/09/17 Telmisartan 40 mg PO 12/09/17 Amlodipine Besylate 10 mg PO DAILY #30 tablet 12/10/17 Valsartan [Diovan] 160 mg PO DAILY #30 tablet 12/10/17 This patient is new to me today: No Emergency Visit: No Critical Care patient: No - Discharge Referral Referred to [facility] No
== END 2017-12-10 09:09 | disposition left against medical advice (07) | DRG 770 ==
LOC: SUPCPDRO 00:02 → JER 00:02 → JERBED 09:10 → J8W 18:40
PROVIDERS: ADMIT Internal Medicine; ATTEND Internal Medicine
PROC: HZ2ZZZZ Detoxification Services for Substance Abuse Treatment (ICD-10-PCS; principal; 2017-12-08)
DX: F10.239 Alcohol dependence with withdrawal, unspecified (principal); K21.9 Gastro-esophageal reflux disease without esophagitis; I10 Essential (primary) hypertension; D61.818 Other pancytopenia; E87.0 Hyperosmolality and hypernatremia; D64.9 Anemia, unspecified; E83.51 Hypocalcemia; R74.0 Nonspecific elevation of levels of transaminase and lactic acid dehydrogenase [LDH]; E87.6 Hypokalemia; K76.0 Fatty (change of) liver, not elsewhere classified; Y90.8 Blood alcohol level of 240 mg/100 ml or more
CPT/HCPCS: 36415; 76705-TC; 80053; 80074; 80307; 81003; 82310; 82607; 82746; 83735; 84100; 85025; 85610; 93005; 93010; 99284-25; J7030

== ENCOUNTER 2018-02-25 00:22 | Emergency (ER) | payer OTHER ==
[2018-02-25 00:35] VITALS: TEMP 97.8; BMI 22.3
--- NOTE | 2018-02-25 01:46 | PDOC ---
Attending Attestation - HPI HPI: 02/25/18 01:49 The patient is a 37 year old male, with a significant PMH of EtOH abuse, who presents to the emergency department via EMS with alcohol intoxication. The patient denies any pain. The patient denies any recent falls or trauma. The patient denies chest pain, shortness of breath, headache and dizziness. Denies fever, chills, nausea, vomit, diarrhea and constipation. Denies dysuria, frequency, urgency and hematuria. Allergies: NKA - Physicial Exam PE: 02/25/18 01:49 GENERAL: Sleeping comfortably. Well-appearing, well-nourished. No apparent distress. HEENT: Normocephalic, atraumatic. PERRL, EOM intact. CARDIOVASCULAR: Normal S1, S2. Regular rate and rhythm. PULMONARY: Clear to auscultation bilaterally. ABDOMEN: Soft, non-distended, non-tender. EXTREMITIES: Normal ROM in all four extremities. No gross deformities. SKIN: Warm, dry. No rash NEUROLOGICAL: No focal neurological deficits. <Adiel Roe - Last Filed: 02/25/18 01:49> - Resident Resident Name: Dayne Adame - ED Attending Attestation I have performed the following: I have examined & evaluated the patient, The case was reviewed & discussed with the resident, I agree w/resident's findings & plan, Exceptions are as noted - Medical Decision Making 02/28/18 19:27 Pt treated and released <Manoj Anne - Last Filed: 02/28/18 19:28> Attestations - Attestations 02/25/18 01:50 Documentation prepared by Adiel Roe, acting as medical office administrator for Manoj Anne DO. <Adiel Roe - Last Filed: 02/25/18 01:49>
--- NOTE | 2018-02-25 02:14 | PDOC ---
History of Present Illness - General Chief Complaint: Alcohol intoxication Stated Complaint: POSSIBLE ETOH Time Seen by Provider: 02/25/18 01:35 History Source: Patient Exam Limitations: Intoxication - History of Present Illness Initial Comments: 02/25/18 02:04 Patient is a 37M with history of alcohol abuse and alcohol withdrawal here today with alcohol intoxication. Patient endorses drinking today. Nursing reports that EMS reported that patient was found outside of [facility] intoxicated. Patient is denies fevers, chills, nausea, vomiting, chest pain and shortness of breath. Denies injury and trauma. Denies history of seizures. Medical records show him being admitted for alcohol withdrawal in the past but leaving AMA. Past History - Past Medical History Allergies/Adverse Reactions: Allergies Allergy/AdvReac Type Severity Reaction Status Date / Time No Known Allergies Allergy Verified 02/25/18 00:34 Home Medications: Ambulatory Orders Telmisartan 40 mg PO DAILY 12/09/17 Amlodipine Besylate 10 mg PO DAILY #30 tablet 12/10/17 Valsartan [Diovan] 160 mg PO DAILY #30 tablet 12/10/17 Anemia: No Asthma: No Cancer: No Cardiac Disorders: No CVA: No COPD: No CHF: No Dementia: No Diabetes: No GI Disorders: Yes (GERD ) Disorders: No HTN: Yes Hypercholesterolemia: No Liver Disease: No Seizures: No Thyroid Disease: No - Surgical History Abdominal Surgery: No Appendectomy: No Cardiac Surgery: No Cholecystectomy: No Lung Surgery: No Neurologic Surgery: No Orthopedic Surgery: Yes (broken hand 2010) - Suicide/Smoking/Psychosocial Hx Smoking History: Never smoked Have you smoked in the past 12 months: No Information on smoking cessation initiated: No Hx Alcohol Use: Yes Drug/Substance Use Hx: No Substance Use Type: Alcohol Hx Substance Use Treatment: Yes (June 2017 in [facility] ) Review of Systems - Review of Systems Able to Perform ROS?: No (2/2 intoxication) *Physical Exam - Vital Signs Last Vital Signs Temp Pulse Resp BP Pulse Ox 97.8 F 84 18 144/80 99 02/25/18 00:34 02/25/18 00:34 02/25/18 00:34 02/25/18 00:34 02/25/18 00:34 - Physical Exam Comments: 02/25/18 02:14 GENERAL: Awake, alert, and fully oriented, in no acute distress, resting comfortably, smells of alcohol HEAD: No signs of trauma, normocephalic, atraumatic EYES: PERRLA, EOMI, sclera anicteric, conjunctiva clear ENT: Auricles normal inspection, hearing grossly normal, nares patent, oropharynx clear without exudates. Moist mucosa NECK: Normal ROM, supple, no lymphadenopathy, JVD, or masses LUNGS: No distress, speaks full sentences, clear to auscultation bilaterally HEART: Regular rate and rhythm, normal S1 and S2, no murmurs, rubs or gallops, peripheral pulses normal and equal bilaterally. ABDOMEN: Soft, nontender, normoactive bowel sounds. No guarding, no rebound. No masses EXTREMITIES: Normal inspection, Normal range of motion, no edema. No clubbing or cyanosis. NEUROLOGICAL: Cranial nerves II through XII grossly intact. Slurred speech, no focal sensorimotor deficits, moves all four extremities SKIN: Warm, Dry, normal turgor, no rashes or lesions noted. Medical Decision Making - Medical Decision Making 02/25/18 02:16 Patient is 37M with history of etoh abuse and etoh withdrawal. Denies pain, denies any other acute complaints. Refusing to answer questions. Telling me I am wasting time talking to him. Will continue to monitor, likely discharge when clinically sober. 02/25/18 05:58 Patient awake, asking to go to detox. No longer slurring speech, walking with steady gait. Will discharge. *DC/Admit/Observation/Transfer Diagnosis at time of Disposition: Alcohol abuse - Discharge Dispostion Disposition: HOME Condition at time of disposition: Good Decision to Admit order: No - Referrals - Patient Instructions Printed Discharge Instructions: DI for Alcohol Abuse Additional Instructions: Please return if you have any new, worsening or concerning symptoms. Please go to [facility] for management of your alcohol abuse. - Post Discharge Activity
[2018-02-25 06:01] VITALS: BP 151/90; PULSE 90
== END 2018-02-25 06:04 | disposition home or self-care (01) ==
LOC: JER 00:22
DX: F10.120 Alcohol abuse with intoxication, uncomplicated (principal); Y90.9 Presence of alcohol in blood, level not specified; I10 Essential (primary) hypertension; K21.9 Gastro-esophageal reflux disease without esophagitis
CPT/HCPCS: 99281-25